=== PATIENT | male | born 1950 | race Caucasian/White ===

== ENCOUNTER → 2024-11-09 14:40 | Outpatient (REF) | payer MEDICARE, SELFPAY | LOC: EMG 14:40 | PROVIDERS: ATTENDING PHYSICIAN Psychiatry & Neurology Neurology; FAMILY PHYSICIAN Family Medicine | DX: H53.2 Diplopia (principal); H02.403 Unspecified ptosis of bilateral eyelids; R20.0 Anesthesia of skin; R20.2 Paresthesia of skin | CPT/HCPCS: 95886; 95908; 95937 ==

== ENCOUNTER 2025-04-30 06:15 | Day surgery (SDC) | payer MEDICARE, SELFPAY | END 2025-04-30 14:52 | disposition home or self-care (01) | LOC: GI 06:15 | PROVIDERS: ATTENDING PHYSICIAN Internal Medicine Gastroenterology | DX: Z12.11 Encounter for screening for malignant neoplasm of colon (principal); K57.30 Diverticulosis of large intestine without perforation or abscess without bleeding; K64.8 Other hemorrhoids; D12.3 Benign neoplasm of transverse colon; Z86.0100 Personal history of colon polyps, unspecified | CPT/HCPCS: 45380; 88305 ==